=== PATIENT | female | born 1985 | race Caucasian/White ===

== ENCOUNTER 2018-12-10 17:42 | Emergency (ER) | payer OTHER ==
[~2018-12-10] VITALS: Ht 162.6 cm; Wt 65.8 kg
--- NOTE | 2018-12-10 18:10 | NUR ---
PATIENT WAS SEEN BY . DC, RX AND FOLLOW UP INSTRUCTIONS GIVEN AND EXPLAINED TO PATIENT WHO STATES HE UNDERSTANDS ALL INSTRUCTIONS.
== END 2018-12-10 18:12 | disposition home or self-care (01) ==
LOC: ER 17:47
DX: M26.622 Arthralgia of left temporomandibular joint (principal)
CPT/HCPCS: A4663